=== PATIENT | male | born 1990 | race Caucasian/White ===

== ENCOUNTER 2017-09-05 10:14 | Emergency (ER) | payer OTHER ==
[2017-09-05] MEDS: HYDROCODONE/APAP (5/325) TAB PO (12:28)
[2017-09-05] MEDS: ONDANSETRON (ODT) 4 MG TAB ODT (12:28)
== END 2017-09-05 13:40 | disposition home or self-care (01) ==
LOC: FTE 10:14
DX: M25.511 Pain in right shoulder (principal); M54.5 Low back pain
CPT/HCPCS: 72040; 72100; 99284-25